=== PATIENT | female | born 1955 | race Caucasian/White ===

== ENCOUNTER 2017-07-17 19:33 | Emergency (ER) | payer OTHER ==
[~2017-07-17] VITALS: Ht 165.1 cm; Wt 90.9 kg
[2017-07-17 19:35] VITALS: TEMP 99.1
[2017-07-17 20:21] LABS: BASO # 0.1 (0.0-0.2); BASO % 0.6 % (0.0-2.0); EOS # 0.2 (0.0-0.7); EOS % 1.4 % (0-4.0); GRAN # 6.7 (1.4-6.5); GRAN % 64.1 % (42.2-75.2); HEMATOCRIT 38.7 % (37.0-47.0); HEMOGLOBIN 12.7 g/dl (12.5-16.0); LYMPH # 2.7 (1.2-3.4); LYMPH % 25.5 % (20.0-51.0); MEAN CELL VOLUME 91 fl (80.0-100.0); MEAN CORPUSCULAR HEMOGLOBIN 30 pg (27.0-31.0); MEAN CORPUSCULAR HGB CONC 33 g/dl (33.0-37.0); MEAN PLATELET VOLUME 9.7 fl (7.4-10.4); MONO # 0.8 (0.1-0.6); PLATELET COUNT 329 K/mm3 (130-400); RED BLOOD COUNT 4.24 M/mm3 (4.10-5.30); WHITE BLOOD COUNT 10.4 K/mm3 (4.8-10.8)
[2017-07-17 20:30] LABS: ADJUSTED CALCIUM 9.3 mg/dL (8.4-10.2); ALBUMIN 4.5 gm/dL (3.5-5.0); BILIRUBIN,TOTAL 0.4 mg/dL (0.0-1.0); CALCIUM 9.7 mg/dL (8.4-10.2); CREATININE, serum 0.89 mg/dL (0.52-1.25); POTASSIUM 3.5 mmol/L (3.4-5.0); TOTAL PROTEIN 7.1 gm/dL (6.4-8.2)
[2017-07-17 20:49] LABS: PROTHROMBIN TIME 11.4 SECONDS (9.7-12.8)
[2017-07-17 20:52] LABS: PARTIAL THROMBOPLASTIN TIME 25.7 SECONDS (26.0-37.0)
[2017-07-17 21:38] LABS: COLLECTION METHOD CLEAN CATCH
[2017-07-17] MEDS ORDERED: ZYRTEC 10MG10 MG PO (21:42)
[2017-07-17] MEDS ORDERED: MUCINEX 60600 MG/TA1 PO (21:42)
[2017-07-17] MEDS ORDERED: TESSALON P100 MG/CAP PO (21:44)
[2017-07-17] MEDS ORDERED: CHERATUSSIN AC120 ML PO (21:44)
[2017-07-17] MEDS ORDERED: AMOXICILLIN 8751 TAB PO (21:45)
[2017-07-17 21:47] LABS: SQUAMOUS EPITHELIAL None Seen /hpf; URINE BACTERIA None Seen /hpf; URINE RBC 0-2 /hpf; URINE WBC 0-2 /hpf
[2017-07-17 21:55] LABS: PH 6 (5-8); URINE APPEARANCE Clear; URINE BILIRUBIN Negative (NEGATIVE); URINE BLOOD Negative (NEGATIVE); URINE COLOR Yellow; URINE GLUCOSE Negative (NEGATIVE); URINE KETONE Trace (NEGATIVE); URINE LEUKOCYTE ESTERASE 1+ (NEGATIVE); URINE PROTEIN(semi-quant) 1+ (NEGATIVE); URINE UROBILINOGEN Negative (NEGATIVE)
[2017-07-17] MEDS ORDERED: PEPCID 20MG TAB20 MG PO (22:04)
[2017-07-17 23:37] VITALS: BP 151/92; PULSE 92
== END 2017-07-17 23:37 | disposition home or self-care (01) ==
LOC: COL.ER 19:33
PROVIDERS: Emergency Medicine
DX: R10.13 Epigastric pain (principal); Z90.710 Acquired absence of both cervix and uterus
CPT/HCPCS: J2765; J3010; J7030; J7050; Q9967

== ENCOUNTER 2017-10-07 16:08 | Inpatient (IN) | payer OTHER ==
[~2017-10-07] VITALS: Ht 165.1 cm; Wt 90.6 kg
[~2017-10-07 16:08] MED LIST: AMOXICILLIN 8751 TAB PO; CHERATUSSIN AC120 ML PO; MUCINEX 60600 MG/TA1 PO; PEPCID 20MG TAB20 MG PO; TESSALON P100 MG/CAP PO; ZYRTEC 10MG10 MG PO
[2017-10-07] MEDS ORDERED: PRILOSEC 20MG20 MG PO (16:32)
[2017-10-07 16:49] LABS: COLLECTION METHOD CLEAN CATCH
[2017-10-07 17:07] LABS: BASO % 0.2 % (0.0-2.0); GRAN % 88.9 % (42.2-75.2); HEMATOCRIT 46.5 % (37.0-47.0); HEMOGLOBIN 15.1 g/dl (12.5-16.0); LYMPH # 0.7 (1.2-3.4); LYMPH % 5.6 % (20.0-51.0); MEAN CELL VOLUME 89 fl (80.0-100.0); MEAN CORPUSCULAR HEMOGLOBIN 29 pg (27.0-31.0); MEAN CORPUSCULAR HGB CONC 33 g/dl (33.0-37.0); MEAN PLATELET VOLUME 10.3 fl (7.4-10.4); MONO # 0.6 (0.1-0.6); MONO % 4.7 % (1.7-9.3); PLATELET COUNT 324 K/mm3 (130-400); REDCELL DISTRIBUTION WIDTH-CV 13.9 % (11.5-14.5)
[2017-10-07 17:08] LABS: ALBUMIN 4.7 gm/dL (3.5-5.0); BILIRUBIN,TOTAL 6.6 mg/dL (0.0-1.0); CREATININE, serum 1.02 mg/dL (0.52-1.25); POTASSIUM 4.3 mmol/L (3.4-5.0); TOTAL PROTEIN 7.4 gm/dL (6.4-8.2)
[2017-10-07 17:26] LABS: PH 5 (5-8); URINE APPEARANCE Cloudy; URINE BACTERIA Rare /hpf; URINE BILIRUBIN Positive (NEGATIVE); URINE BLOOD Negative (NEGATIVE); URINE COLOR Amber; URINE GLUCOSE 1+ (NEGATIVE); URINE KETONE 1+ (NEGATIVE); URINE LEUKOCYTE ESTERASE 1+ (NEGATIVE); URINE NITRATE Negative (NEGATIVE); URINE PROTEIN(semi-quant) 2+ (NEGATIVE); URINE RBC 0-2 /hpf; URINE UROBILINOGEN >=4.0 mg/dL (NEGATIVE)
[2017-10-07 20:47] VITALS: BP 133/65; PULSE 88; TEMP 97.8
[2017-10-07 20:52] VITALS: BP 133/65; PULSE 89; TEMP 97.8
[2017-10-08] VITALS (7 sets, daily range): BP systolic 127–146; BP diastolic 66–89; PULSE 94–122; TEMP 97.4–98.8
[2017-10-08 06:39] LABS: BASO % 0.2 % (0.0-2.0); GRAN # 15.4 (1.4-6.5); GRAN % 87.5 % (42.2-75.2); HEMATOCRIT 44.3 % (37.0-47.0); HEMOGLOBIN 14.5 g/dl (12.5-16.0); LYMPH # 0.9 (1.2-3.4); LYMPH % 4.9 % (20.0-51.0); MEAN CELL VOLUME 91 fl (80.0-100.0); MEAN CORPUSCULAR HEMOGLOBIN 30 pg (27.0-31.0); MEAN CORPUSCULAR HGB CONC 33 g/dl (33.0-37.0); MEAN PLATELET VOLUME 10.3 fl (7.4-10.4); MONO # 1.2 (0.1-0.6); MONO % 6.8 % (1.7-9.3); PLATELET COUNT 305 K/mm3 (130-400); RED BLOOD COUNT 4.85 M/mm3 (4.10-5.30); REDCELL DISTRIBUTION WIDTH-CV 14.4 % (11.5-14.5)
[2017-10-08 06:56] LABS: ALBUMIN 4.1 gm/dL (3.5-5.0); BILIRUBIN,TOTAL 2.4 mg/dL (0.0-1.0); CALCIUM 9.3 mg/dL (8.4-10.2); CREATININE, serum 0.95 mg/dL (0.52-1.25); POTASSIUM 4.1 mmol/L (3.4-5.0); TOTAL PROTEIN 6.9 gm/dL (6.4-8.2)
[2017-10-09] VITALS (11 sets, daily range): BP systolic 113–127; BP diastolic 62–93; PULSE 80–120; TEMP 97.5–102.2
[2017-10-09 07:55] LABS: BASO # 0.1 (0.0-0.2); BASO % 0.3 % (0.0-2.0); GRAN # 15.5 (1.4-6.5); GRAN % 83.7 % (42.2-75.2); HEMATOCRIT 39.9 % (37.0-47.0); HEMOGLOBIN 12.7 g/dl (12.5-16.0); LYMPH # 1.4 (1.2-3.4); LYMPH % 7.5 % (20.0-51.0); MEAN CELL VOLUME 93 fl (80.0-100.0); MEAN CORPUSCULAR HEMOGLOBIN 30 pg (27.0-31.0); MEAN CORPUSCULAR HGB CONC 32 g/dl (33.0-37.0); MEAN PLATELET VOLUME 10.4 fl (7.4-10.4); MONO # 1.4 (0.1-0.6); MONO % 7.6 % (1.7-9.3); PLATELET COUNT 274 K/mm3 (130-400); RED BLOOD COUNT 4.29 M/mm3 (4.10-5.30); REDCELL DISTRIBUTION WIDTH-CV 14.6 % (11.5-14.5)
[2017-10-09 08:12] LABS: ALBUMIN 3.5 gm/dL (3.5-5.0); BILIRUBIN,TOTAL 1.8 mg/dL (0.0-1.0); CALCIUM 8.9 mg/dL (8.4-10.2); CREATININE, serum 1.12 mg/dL (0.52-1.25); TOTAL PROTEIN 6.4 gm/dL (6.4-8.2)
[2017-10-10] VITALS (11 sets, daily range): BP systolic 99–144; BP diastolic 60–79; PULSE 66–106; TEMP 98.3–100.2
[2017-10-10 06:37] LABS: BASO % 0.2 % (0.0-2.0); EOS % 0.1 % (0-4.0); GRAN # 10.8 (1.4-6.5); GRAN % 79.3 % (42.2-75.2); LYMPH # 1.5 (1.2-3.4); LYMPH % 11.2 % (20.0-51.0); MEAN CELL VOLUME 94 fl (80.0-100.0); MEAN CORPUSCULAR HGB CONC 32 g/dl (33.0-37.0); MEAN PLATELET VOLUME 10.3 fl (7.4-10.4); MONO # 1.1 (0.1-0.6); PLATELET COUNT 228 K/mm3 (130-400); RED BLOOD COUNT 3.61 M/mm3 (4.10-5.30); REDCELL DISTRIBUTION WIDTH-CV 14.4 % (11.5-14.5)
[2017-10-10 06:44] LABS: HEMATOCRIT 33.8 % (37.0-47.0); HEMOGLOBIN 10.7 g/dl (12.5-16.0); MEAN CORPUSCULAR HEMOGLOBIN 30 pg (27.0-31.0)
[2017-10-10 06:50] LABS: BILIRUBIN,TOTAL 1.1 mg/dL (0.0-1.0); CALCIUM 8.5 mg/dL (8.4-10.2); CREATININE, serum 0.85 mg/dL (0.52-1.25); POTASSIUM 3.9 mmol/L (3.4-5.0); TOTAL PROTEIN 5.7 gm/dL (6.4-8.2)
[2017-10-11 03:06] VITALS: BP 146/75; PULSE 90; TEMP 98.7
[2017-10-11 07:54] LABS: BASO % 0.2 % (0.0-2.0); GRAN # 11.9 (1.4-6.5); GRAN % 82.1 % (42.2-75.2); LYMPH # 1.4 (1.2-3.4); LYMPH % 9.4 % (20.0-51.0); MEAN CELL VOLUME 93 fl (80.0-100.0); MEAN CORPUSCULAR HGB CONC 32 g/dl (33.0-37.0); MEAN PLATELET VOLUME 10.5 fl (7.4-10.4); MONO # 1.1 (0.1-0.6); MONO % 7.5 % (1.7-9.3); PLATELET COUNT 246 K/mm3 (130-400); RED BLOOD COUNT 3.59 M/mm3 (4.10-5.30); REDCELL DISTRIBUTION WIDTH-CV 14.2 % (11.5-14.5)
[2017-10-11 07:56] LABS: HEMATOCRIT 33.4 % (37.0-47.0); HEMOGLOBIN 10.6 g/dl (12.5-16.0); MEAN CORPUSCULAR HEMOGLOBIN 30 pg (27.0-31.0)
[2017-10-11 08:07] LABS: ALBUMIN 3.1 gm/dL (3.5-5.0); BILIRUBIN,TOTAL 0.7 mg/dL (0.0-1.0); CALCIUM 8.4 mg/dL (8.4-10.2); CREATININE, serum 0.77 mg/dL (0.52-1.25); POTASSIUM 3.8 mmol/L (3.4-5.0)
[2017-10-11 09:00] VITALS: BP 106/90; PULSE 94; TEMP 98.1
[2017-10-11 11:12] VITALS: BP 144/77; PULSE 85; TEMP 97.8
[2017-10-11 15:18] VITALS: BP 144/67; PULSE 60; TEMP 98.1
[2017-10-11 20:00] VITALS: BP 127/68; PULSE 102
[2017-10-11 21:30] VITALS: TEMP 101.8
[2017-10-12] VITALS (7 sets, daily range): BP systolic 131–171; BP diastolic 65–75; PULSE 98–115; TEMP 98.4–100.8
[2017-10-12 08:42] LABS: MEAN CELL VOLUME 90 fl (80.0-100.0); MEAN CORPUSCULAR HGB CONC 32 g/dl (33.0-37.0); MEAN PLATELET VOLUME 10.1 fl (7.4-10.4); PLATELET COUNT 318 K/mm3 (130-400)
[2017-10-12 08:48] LABS: HEMATOCRIT 36.1 % (37.0-47.0); HEMOGLOBIN 11.7 g/dl (12.5-16.0); MEAN CORPUSCULAR HEMOGLOBIN 29 pg (27.0-31.0)
[2017-10-12 08:59] LABS: ALBUMIN 3.2 gm/dL (3.5-5.0); CALCIUM 8.5 mg/dL (8.4-10.2); CREATININE, serum 0.69 mg/dL (0.52-1.25); POTASSIUM 3.6 mmol/L (3.4-5.0); TOTAL PROTEIN 6.3 gm/dL (6.4-8.2)
[2017-10-12 09:09] LABS: BAND 36 % (0-10); LYMPHOCYTE 20 % (20.0-51.0); METAMYELOCYTE 1 % (0-0); NEUTROPHILS 35 % (42.0-75.2); PLATELET ESTIMATE NORMAL (NORMAL); STOMATOCYTE 2+
[2017-10-12 09:10] LABS: TOXIC GRANULATION PRESENT
[2017-10-13 04:30] VITALS: BP 160/72; PULSE 99; TEMP 100.2
[2017-10-13 07:00] LABS: MEAN CELL VOLUME 91 fl (80.0-100.0); MEAN CORPUSCULAR HGB CONC 32 g/dl (33.0-37.0); MEAN PLATELET VOLUME 9.7 fl (7.4-10.4); PLATELET COUNT 297 K/mm3 (130-400); RED BLOOD COUNT 3.65 M/mm3 (4.10-5.30); REDCELL DISTRIBUTION WIDTH-CV 14.1 % (11.5-14.5)
[2017-10-13 07:09] LABS: HEMATOCRIT 33.2 % (37.0-47.0); HEMOGLOBIN 10.7 g/dl (12.5-16.0); MEAN CORPUSCULAR HEMOGLOBIN 29 pg (27.0-31.0)
[2017-10-13 07:13] LABS: ALBUMIN 2.8 gm/dL (3.5-5.0); BILIRUBIN,TOTAL 0.6 mg/dL (0.0-1.0); CALCIUM 8.3 mg/dL (8.4-10.2); CREATININE, serum 0.68 mg/dL (0.52-1.25); POTASSIUM 3.8 mmol/L (3.4-5.0); TOTAL PROTEIN 5.6 gm/dL (6.4-8.2)
[2017-10-13 07:15] LABS: PHOSPHOROUS 2.7 mg/dL (2.5-4.5)
[2017-10-13 07:19] VITALS: BP 170/72; PULSE 111; TEMP 100.5
[2017-10-13 07:53] LABS: ANISOCYTOSIS 1+; BAND 12 % (0-10); BASOPHIL 1 % (0-2); HYPOCHROMIA 1+; LYMPHOCYTE 7 % (20.0-51.0); NEUTROPHILS 67 % (42.0-75.2); PLATELET ESTIMATE NORMAL (NORMAL); POLYCHROMASIA 1+
[2017-10-13 09:08] LABS: COLLECTION METHOD CLEAN CATCH
[2017-10-13 09:18] LABS: PH 7 (5-8); SQUAMOUS EPITHELIAL 0-2 /hpf; URINE APPEARANCE Clear; URINE BACTERIA None Seen /hpf; URINE BILIRUBIN Negative (NEGATIVE); URINE BLOOD Negative (NEGATIVE); URINE COLOR Yellow; URINE GLUCOSE Negative (NEGATIVE); URINE KETONE Negative (NEGATIVE); URINE LEUKOCYTE ESTERASE Negative (NEGATIVE); URINE NITRATE Negative (NEGATIVE); URINE PROTEIN(semi-quant) 1+ (NEGATIVE); URINE RBC 0-2 /hpf; URINE UROBILINOGEN >=4.0 mg/dL (NEGATIVE)
[2017-10-13 11:30] VITALS: BP 158/73; PULSE 112; TEMP 99.8
[2017-10-13 14:02] LABS: AMYLASE 50 U/L (30-110); LIPASE 202 U/L (23-300)
[2017-10-13 15:16] VITALS: BP 134/63; PULSE 91; TEMP 98.6
[2017-10-13 19:15] VITALS: BP 98/29; PULSE 76; TEMP 99.4
[2017-10-13 19:24] VITALS: BP 145/71; PULSE 90; TEMP 99.9
[2017-10-14 00:38] VITALS: BP 161/74; PULSE 113; TEMP 102.8
[2017-10-14 04:50] VITALS: BP 149/73; PULSE 83; TEMP 98.1
[2017-10-14 07:45] VITALS: BP 125/72; PULSE 91; TEMP 99.6
[2017-10-14 08:02] LABS: MEAN CELL VOLUME 91 fl (80.0-100.0); MEAN CORPUSCULAR HGB CONC 32 g/dl (33.0-37.0); MEAN PLATELET VOLUME 9.8 fl (7.4-10.4); PLATELET COUNT 327 K/mm3 (130-400); RED BLOOD COUNT 3.71 M/mm3 (4.10-5.30)
[2017-10-14 08:03] LABS: HEMATOCRIT 33.6 % (37.0-47.0); HEMOGLOBIN 10.9 g/dl (12.5-16.0); MEAN CORPUSCULAR HEMOGLOBIN 29 pg (27.0-31.0)
[2017-10-14 08:33] LABS: CALCIUM 8.3 mg/dL (8.4-10.2); CREATININE, serum 0.67 mg/dL (0.52-1.25); MAGNESIUM 2.1 mg/dL (1.6-2.3); POTASSIUM 3.4 mmol/L (3.4-5.0)
[2017-10-14 11:00] VITALS: BP 136/68; PULSE 87; TEMP 98.4
[2017-10-14 13:58] LABS: BAND 41 % (0-10); EOSINOPHIL 1 % (0-4); LYMPHOCYTE 13 % (20.0-51.0); METAMYELOCYTE 3 % (0-0); NEUTROPHILS 38 % (42.0-75.2); PLATELET ESTIMATE NORMAL (NORMAL); POLYCHROMASIA 1+
[2017-10-14 15:43] VITALS: BP 152/76; PULSE 90; TEMP 99
[2017-10-14 20:35] VITALS: BP 138/78; PULSE 90; TEMP 98.3
[2017-10-15] VITALS (7 sets, daily range): BP systolic 127–139; BP diastolic 48–75; PULSE 78–96; TEMP 97.4–102.2
[2017-10-15 06:26] LABS: MEAN CELL VOLUME 90 fl (80.0-100.0); MEAN CORPUSCULAR HGB CONC 33 g/dl (33.0-37.0); MEAN PLATELET VOLUME 9.7 fl (7.4-10.4); PLATELET COUNT 343 K/mm3 (130-400); RED BLOOD COUNT 3.44 M/mm3 (4.10-5.30); REDCELL DISTRIBUTION WIDTH-CV 14.1 % (11.5-14.5)
[2017-10-15 06:30] LABS: HEMATOCRIT 30.8 % (37.0-47.0); MEAN CORPUSCULAR HEMOGLOBIN 29 pg (27.0-31.0)
[2017-10-15 06:40] LABS: CREATININE, serum 0.71 mg/dL (0.52-1.25); MAGNESIUM 1.9 mg/dL (1.6-2.3); POTASSIUM 3.4 mmol/L (3.4-5.0)
[2017-10-15 07:40] LABS: BAND 21 % (0-10); LYMPHOCYTE 12 % (20.0-51.0); NEUTROPHILS 67 % (42.0-75.2); PLATELET ESTIMATE INCREASED (NORMAL)
[2017-10-15 11:27] LABS: BILIRUBIN BODY FLUID XXX
== END 2017-10-15 19:55 | disposition short-term general hospital (02) | DRG 417 ==
LOC: COL.ER 16:08 → MEDICAL 17:42
PROVIDERS: Emergency Medicine; Internal Medicine; Nurse Practitioner Family; Surgery
PROC: 0FC98ZZ Extirpation of Matter from Common Bile Duct, Via Natural or Artificial Opening Endoscopic (ICD-10-PCS; 2017-10-09)
PROC: 0FT44ZZ Resection of Gallbladder, Percutaneous Endoscopic Approach (ICD-10-PCS; principal; 2017-10-10 13:00)
DX: K80.66 Calculus of gallbladder and bile duct with acute and chronic cholecystitis without obstruction (principal); K85.12 Biliary acute pancreatitis with infected necrosis; N39.0 Urinary tract infection, site not specified; J98.11 Atelectasis; K56.7 Ileus, unspecified; Z87.891 Personal history of nicotine dependence; K21.9 Gastro-esophageal reflux disease without esophagitis; B95.4 Other streptococcus as the cause of diseases classified elsewhere
CPT/HCPCS: 99222; 99232-AI; 99233-AI; A9284; C1751; C1769; C9113; J0696; J1100; J1170; J1450; J1644; J1885; J2250; J2405; J2543; J2550; J2704; J3010; J7030; J7120; Q9967

== ENCOUNTER → 2018-05-12 | Outpatient (CLI) | payer OTHER ==
[~2018-05-12] MED LIST changes: +PRILOSEC 20MG20 MG PO
== END ==
LOC: MC.RAD 08:00
DX: Z12.31 Encounter for screening mammogram for malignant neoplasm of breast (principal); N64.89 Other specified disorders of breast

== ENCOUNTER → 2018-05-27 | Outpatient (CLI) | payer OTHER | LOC: MC.RAD 05-20 13:00 | DX: R92.8 Other abnormal and inconclusive findings on diagnostic imaging of breast (principal) | CPT/HCPCS: G0279 ==

== ENCOUNTER → 2019-12-13 | Outpatient (CLI) | payer BC | LOC: MC.RAD 11-11 08:30 | DX: Z12.31 Encounter for screening mammogram for malignant neoplasm of breast (principal) ==

== ENCOUNTER → 2020-02-21 | Outpatient (CLI) | payer BC | LOC: ZCOL.LAB 17:06 | DX: L08.9 Local infection of the skin and subcutaneous tissue, unspecified (principal) ==

== ENCOUNTER → 2021-12-18 | Outpatient (CLI) | payer BC | LOC: MC.RAD 13:00 | DX: N60.12 Diffuse cystic mastopathy of left breast (principal) ==